=== PATIENT | female | born 1960 | race Caucasian/White ===

== ENCOUNTER → 2022-05-04 | Outpatient (CLI) | payer OTHER | LOC: HEART CORB 09:30 | DX: R07.2 Precordial pain (principal); R06.02 Shortness of breath | CPT/HCPCS: 78452; A9502; J2785 ==

== ENCOUNTER → 2022-06-04 | Outpatient (CLI) | payer OTHER | LOC: HEART CORB 13:30 | DX: I73.9 Peripheral vascular disease, unspecified (principal) ==